=== PATIENT | female | born 1985 | race Caucasian/White ===

== ENCOUNTER 2018-09-01 18:52 | Observation (INO) ==
[2018-09-01] MEDS ORDERED: TORADOL 30 MG VIAL IVP ONE (20:21)
[2018-09-01 20:42] VITALS: BMI 21.4
[2018-09-01 21:01] LABS: BASOPHILS # (AUTO) 0.1 X10^3/uL (0.0-0.1); BASOPHILS % (AUTO) 0.7 % (0.2-1.0); EOSINOPHILS # (AUTO) 0.1 x10^3/uL (0.0-0.2); EOSINOPHILS % (AUTO) 1.7 % (0.9-2.9); HEMATOCRIT 40.8 % (36.0-47.0); HEMOGLOBIN 14.2 g/dL (12.0-16.0); LYMPHOCYTES # (AUTO) 2.4 X10^3/uL (1.3-2.9); LYMPHOCYTES % (AUTO) 31.9 % (21.0-51.0); MEAN CORPUSCULAR HEMOGLOBIN 31.5 pg (27.0-34.0); MEAN CORPUSCULAR HGB CONC 34.7 g/dL (33.0-35.0); MEAN CORPUSCULAR VOLUME 90.6 fL (80.0-100.0); MEAN PLATELET VOLUME 9.3 fL (7.4-11.0); MONOCYTES # (AUTO) 0.5 x10^3/uL (0.3-0.8); MONOCYTES % (AUTO) 6.8 % (0.0-13.0); NEUTROPHILS # (AUTO) 4.4 x10^3/uL (2.2-4.8); NEUTROPHILS % (AUTO) 58.9 % (42.0-75.0); PLATELET COUNT 207 X10^3/uL (150.0-450.0); RED CELL DISTRIBUTION WIDTH 13.7 % (11.6-16.5); WHITE BLOOD COUNT 7.5 X10^3/uL (3.6-10.0)
[2018-09-01 21:12] LABS: ALANINE AMINOTRANSFERASE 13 Units/L (12-78); ALBUMIN 3.6 g/dL (3.4-5.0); ALKALINE PHOSPHATASE 74 Units/L (46-116); ASPARTATE AMINO TRANSFERASE 14 Units/L (15-37); BLOOD UREA NITROGEN 19 mg/dL (7-18); CALCIUM 8.6 mg/dL (8.5-10.1); CARBON DIOXIDE 25.7 mmol/L (21-32); CHLORIDE 105 mmol/L (98-107); CREATININE 0.81 mg/dL (0.55-1.02); SODIUM 138 mmol/L (136-145); TOTAL PROTEIN 7.3 g/dL (6.4-8.2); eGFR NON BLACK RACES > 60 (>60)
[2018-09-01] MEDS: NS 1000 ML 1,000 ML IV SCH (21:13)
[2018-09-01] MEDS: ROCEPHIN VIAL 1 GRAM IVP SCH (21:30)
[2018-09-01 21:37] LABS: BILIRUBIN,URINE NEGATIVE (NEGATIVE); BLOOD/HEMOGLOBIN,URINE 5+ (NEGATIVE); GLUCOSE, URINE NEGATIVE (NEGATIVE); KETONES,URINE NEGATIVE (NEGATIVE); LEUKOCYTE ESTERASE ,URINE 1+ (NEGATIVE); NITRITES,URINE NEGATIVE (NEGATIVE); PROTEIN,URINE 1+ (NEGATIVE); UROBILINOGEN,URINE 1+ (NORMAL)
[2018-09-01 22:03] LABS: APPEARANCE,URINE SLIGHTLY HAZY (CLEAR); COLOR,URINE YELLOW (YELLOW)
[2018-09-01 22:04] LABS: BACTERIA,URINE TRACE /HPF (NEGATIVE); CALCIUM OXALATE CRYSTALS,UR MODERATE /HPF (NEGATIVE); MUCUS,URINE FEW /HPF (NEGATIVE); SQUAMOUS EPITHELIAL CELL,UR MANY /HPF (NEGATIVE)
[2018-09-01] MEDS: PERCOCET TAB 5/325 MG PO PRN (23:52)
[2018-09-02] MEDS: TORADOL 15 MG VIAL IVP PRN ×4 (03:15→23:54)
[2018-09-02 06:18] LABS: BLOOD UREA NITROGEN 18 mg/dL (7-18); CALCIUM 7.8 mg/dL (8.5-10.1); CARBON DIOXIDE 21.9 mmol/L (21-32); CHLORIDE 109 mmol/L (98-107); CREATININE 0.61 mg/dL (0.55-1.02); SODIUM 138 mmol/L (136-145); eGFR NON BLACK RACES > 60 (>60)
--- NOTE | 2018-09-02 08:16 | DR.H&P ---
H&P - History & Physical for Day of: H&P Date: 09/01/18 - Chief Complaint Chief Complaint: intractable abdominal pain - History of Present Illness History of Present Illness: Patient is a 33 year old female that is being admitted to [facility] secondary to intractable abdominal pain. Patient started having left lower flank/back pain that radiated around to umbilical region that started on Saturday night. Patient reports no relief with OTC medications. Patient received x2 bags of IV fluids with IM Toradol and Demerol in office. Patient was noted to have a decreased urine output after the second bag of fluid without any relief in pain. Patient denies N/V/D or fever. Patient will be admitted for further treatment and evaluation. - Past Medical History Past Medical History: Headaches, Kidney Stones - Past Surgical History Surgical History: , Cholecystectomy, Other - Social History Does patient currently use any type of tobacco product: No Have you used tobacco products in the last 12 months: No Type of Tobacco Use: None Alcohol Use: None Drug Use: None - Medications Home Medications: codeine Adverse Reaction (Verified 09/01/18 20:44) CONTINUE taking the following medications sumatriptan succinate 100 mg PO PRN PRN 09/01/18 [History] - Review of Systems Constitutional: See HPI Eyes: See HPI ENT: See HPI Respiratory: See HPI Cardiovascular: See HPI Gastrointestinal: See HPI, Abdominal Pain Genitourinary: See HPI Musculoskeletal: See HPI Skin: See HPI Neurological: See HPI - Physical Exam Vital Signs: Temperature 97.9 F Pulse Rate [Right Brachial] 84 Respiratory Rate 20 Blood Pressure [Right Arm] 95/61 O2 Sat by Pulse Oximetry 98 Oriented: Normal Eyes: Normal Ear: Normal Nose: Normal Throat: Normal Respiratory: Clear Throughout Cardiovascular: Normal : Other Auscultation: Bowel Sounds: Normal Palpation: Normal Tenderness: Diffuse, Severe, Guarding Skin: Normal Musculoskeletal: Normal Psychiatric: Normal Mood Description: Anxious Affect: Anxious Speech Pattern: Clear - Assessment/Plan (1) Abdominal pain Status: Acute Plan: CT Abdomen and Pelvis. IV pain medication. IV Hydration. Monitor I&O's - Allergies Allergies/Adverse Reactions: Allergies Allergy/AdvReac Type Severity Reaction Status Date / Time codeine AdvReac Verified 09/01/18 20:44
--- NOTE | 2018-09-02 08:33 | CT ---
HISTORY: Flank pain Study: CT abdomen pelvis without contrast Comparison: None Technique: Axial noncontrast images with coronal and sagittal reformats. Dose reduction procedures were used with mA/kv adjusted for body size. Findings: The lung bases are clear. The liver, spleen, adrenal glands, and pancreas are within normal limits to the limitations of an unenhanced examination. The kidneys are unobstructed. There is a 1 mm nonobstructing right midpole renal calculus. No ureteral calculi are identified. The abdominal aorta is within normal limits for age. No intraperitoneal or retroperitoneal lymphadenopathy of significance is identified. The appendix is not identified with absolute certainty. There are no secondary signs of appendicitis present. There are no findings suggestive of diverticulitis or colitis. There are no findings suggestive of enteritis or small bowel obstruction. Examination of the pelvis demonstrated no evidence for pelvic masses, pelvic fluid, or pelvic lymphadenopathy. There is a 4.5 by 3.9 cm right adnexal lesion possibly a cyst, however, evaluation with transvaginal pelvic sonography is recommended. No definite bladder abnormality is identified. No lytic or blastic skeletal lesions are identified. IMPRESSION: No evidence for obstructing renal or ureteral calculi 1 mm nonobstructing right midpole renal calculus 4.5 x 3.5 cm right adnexal lesion possibly a cyst. Evaluation with transvaginal pelvic sonography is recommended Reported By:
[2018-09-02] MEDS ORDERED: ZOFRAN INJ 4 MG VIAL IVP PRN (08:44)
[2018-09-02] MEDS: NS 1000 ML 1,000 ML IV SCH ×2 (09:21→14:33)
--- NOTE | 2018-09-02 12:57 | US ---
History: Right adnexal large cyst by today's CT scan Study: Transvaginal ultrasound Findings: There is a right ovarian septated cystic mass measuring 4.5 x 3.43 x 4.46 cm. Overall the right ovary measures 5.58 x 4.42 x 5.66 cm. The left ovary measures 3.2 x 1.45 x 1.93 cm without mass. The uterus measures 8.28 x 5.32 x 5.66 cm without mass. The endometrium measures 5.6 mm thickness. There is a pocket of free fluid in the cul-de-sac. 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
[2018-09-02] MEDS: PEPCID 20 MG IV PREMIX* 20 MG/50 ML BAG IV SCH ×2 (13:01→20:57)
[2018-09-02] MEDS: PERCOCET TAB 5/325 MG PO PRN ×2 (14:32→20:58)
--- NOTE | 2018-09-02 18:00 | PCM.PROG ---
Progress Note - Progress Note for Day of Date of Exam: 09/02/18 - Subjective Subjective: 33 WF ADMITTED ON 09/01 WITH INTRACTABLE LEFT FLANK PAIN, HEMATURIA AND UTI. PT CO NAUSEA AND LOOSE STOOL. PT HAD CT ABDPELVIS ON ADMISSION WITH 1 mm nonobstructing right midpole renal calculus. 4.5 x 3.5 cm right adnexal lesion possibly a cyst. Evaluation with transvaginal pelvic sonography is recommended. PT STATES LAST LMP ~08/11 WITH HX OF TUBAL LIGATION. TRANSVAGINAL US AND SERUM HCG ORDERED FOR TODAY, WILL CONTINUE WITH HYDRATION, PAIN CONTROL, IV ROCEPHINFOR ECOLI UTI. - Past Medical Family Social History Past Med/Fam/Surg Hx: No changes since H&P Allergies: Allergies codeine Adverse Reaction (Verified 09/01/18 20:44) - Review of Systems ROS: No change since H&P - Vital Signs and I&O's Vital Signs: Temperature 98.2 F Pulse Rate [Right Brachial] 73 Respiratory Rate 18 Blood Pressure [Right Arm] 102/55 O2 Sat by Pulse Oximetry 98 Intake and Output: Intake & Output 08/31/18 09/01/18 09/02/18 09/03/18 11:59 11:59 11:59 11:59 Intake Total 1650 / 1650 360 / 360 Balance 1650 / 1650 360 / 360 - Physical Exam Oriented: Normal Eyes: Normal Ear: Normal Nose: Normal Throat: Normal Respiratory: Normal Cardiovascular: Normal : Other Auscultation: Bowel Sounds: Normal Tenderness: LUQ, LLQ, Moderate Skin: Normal Musculoskeletal: Normal Psychiatric: Normal Mood Description: Anxious Affect: Anxious Speech Pattern: Clear - Laboratory and Diagnostics Result Diagrams: 09/01/18 20:37 09/02/18 05:35 Labs: 09/01/18 21:25 Urine,Clean Catch Urine Culture - Preliminary Laboratory WBC 7.5 X10^3/uL (3.6-10.0) 09/01/18 20:37 RBC 4.50 X10^6/uL (3.5-5.4) 09/01/18 20:37 Hgb 14.2 g/dL (12.0-16.0) 09/01/18 20:37 Hct 40.8 % (36.0-47.0) 09/01/18 20:37 MCV 90.6 fL (80.0-100.0) 09/01/18 20:37 MCH 31.5 pg (27.0-34.0) 09/01/18 20:37 MCHC 34.7 g/dL (33.0-35.0) 09/01/18 20:37 RDW 13.7 % (11.6-16.5) 09/01/18 20:37 Plt Count 207 X10^3/uL (150.0-450.0) 09/01/18 20:37 MPV 9.3 fL (7.4-11.0) 09/01/18 20:37 Neut % (Auto) 58.9 % (42.0-75.0) 09/01/18 20:37 Lymph % (Auto) 31.9 % (21.0-51.0) 09/01/18 20:37 Stokes % (Auto) 6.8 % (0.0-13.0) 09/01/18 20:37 Eos % (Auto) 1.7 % (0.9-2.9) 09/01/18 20:37 Baso % (Auto) 0.7 % (0.2-1.0) 09/01/18 20:37 Neut # (Auto) 4.4 x10^3/uL (2.2-4.8) 09/01/18 20:37 Lymph # (Auto) 2.4 X10^3/uL (1.3-2.9) 09/01/18 20:37 Stokes # (Auto) 0.5 x10^3/uL (0.3-0.8) 09/01/18 20:37 Eos # (Auto) 0.1 x10^3/uL (0.0-0.2) 09/01/18 20:37 Baso # (Auto) 0.1 X10^3/uL (0.0-0.1) 09/01/18 20:37 Absolute Nucleated RBC 0.0 /100WBC 09/01/18 20:37 Sodium 138 mmol/L (136-145) 09/02/18 05:35 Corrected Sodium TNP 09/02/18 05:35 Potassium 3.7 mmol/L (3.5-5.1) 09/02/18 05:35 Chloride 109 mmol/L (98-107) H 09/02/18 05:35 Carbon Dioxide 21.9 mmol/L (21-32) 09/02/18 05:35 BUN 18 mg/dL (7-18) 09/02/18 05:35 Creatinine 0.61 mg/dL (0.55-1.02) 09/02/18 05:35 Est GFR (MDRD) Af Amer > 60 (>60) 09/02/18 05:35 Est GFR (MDRD) Non-Af > 60 (>60) 09/02/18 05:35 Glucose 92 mg/dL (65-99) 09/02/18 05:35 Calcium 7.8 mg/dL (8.5-10.1) L 09/02/18 05:35 Corrected Calcium TNP 09/01/18 20:37 Total Bilirubin 0.70 mg/dL (0.2-1.0) 09/01/18 20:37 AST 14 Units/L (15-37) L 09/01/18 20:37 ALT 13 Units/L (12-78) 09/01/18 20:37 Alkaline Phosphatase 74 Units/L (46-116) 09/01/18 20:37 Total Protein 7.3 g/dL (6.4-8.2) 09/01/18 20:37 Albumin 3.6 g/dL (3.4-5.0) 09/01/18 20:37 Globulin 3.7 g/dL (2.5-4.5) 09/01/18 20:37 Albumin/Globulin Ratio 1.0 Ratio (1.1-2.1) L 09/01/18 20:37 Specimen Type Clean catch urine 09/01/18 21:25 Urine Color Yellow (YELLOW) 09/01/18 21:25 Urine Appearance Slightly hazy (CLEAR) 09/01/18 21:25 Urine pH 5.0 (5.0 - 8.0) 09/01/18 21:25 Ur Specific [place] 1.030 (1.000-1.030) 09/01/18 21:25 Urine Protein 1+ (NEGATIVE) 09/01/18 21:25 Urine Glucose (UA) Negative (NEGATIVE) 09/01/18 21:25 Urine Ketones Negative (NEGATIVE) 09/01/18 21:25 Urine Occult Blood 5+ (NEGATIVE) 09/01/18 21:25 Urine Nitrite Negative (NEGATIVE) 09/01/18 21:25 Urine Bilirubin Negative (NEGATIVE) 09/01/18 21:25 Urine Urobilinogen 1+ (NORMAL) 09/01/18 21:25 Ur Leukocyte Esterase 1+ (NEGATIVE) 09/01/18 21:25 Urine RBC 10-20 /HPF (NONE SEEN) 09/01/18 21:25 Urine WBC 3-5 /HPF (NONE SEEN) 09/01/18 21:25 Ur Squamous Epith Cells Many /HPF (NEGATIVE) 09/01/18 21:25 Calcium Oxalate Crystal Moderate /HPF (NEGATIVE) 09/01/18 21:25 Urine Bacteria Trace /HPF (NEGATIVE) 09/01/18 21:25 Urine Mucus Few /HPF (NEGATIVE) 09/01/18 21:25 Ur Culture Indicated? Yes/culture set up 09/01/18 21:25 - Plan (1) UTI (urinary tract infection) Status: Acute Plan: IV ATBX. IV HYDRATION. PAIN AND NAUSEA CONTROL. TRANSVAGINAL US, SERUM HCG TODAY. STOOL STUDIES (2) Pelvic pain Status: Acute (3) Hematuria Status: Acute (4) Abdominal pain Status: Acute
[2018-09-02 18:08] LABS: SERUM PREGNANCY TEST, QUAL NEGATIVE <10 mIU/mL
[2018-09-02] MEDS: ROCEPHIN VIAL 1 GRAM IVP SCH (20:57)
[2018-09-03] MEDS: NS 1000 ML 1,000 ML IV SCH ×2 (01:05→05:25)
[2018-09-03] MEDS: TORADOL 15 MG VIAL IVP PRN (08:43)
[2018-09-03] MEDS: PEPCID 20 MG IV PREMIX* 20 MG/50 ML BAG IV SCH (08:45)
[2018-09-03] MEDS: PERCOCET TAB 5/325 MG PO PRN (13:12)
--- NOTE | 2018-09-03 13:22 | RAD ---
History: Low back pain Study: Five views of the lumbar spine Comparison: None Findings: There is normal alignment without fracture or compression. There is mild L4-5 disc space narrowing and moderate L5-S1 disc space narrowing. There are prominent anterior osteophytes at L5-S1. The sacroiliac joints are unremarkable. The facets appear unremarkable. Impression: Lower lumbar L4-5 and L5-S1 degenerative disc disease Reported By:
--- NOTE | 2018-09-03 13:23 | RAD ---
History: Back pain Study: Three views of the thoracic spine Comparison: None Findings: There is mild dextroscoliosis of the upper thoracic spine. There is no fracture or compression or lytic or blastic lesion. No significant degenerative osteophytes are demonstrated. Impression: Mild dextroscoliosis, otherwise unremarkable Reported By:
[2018-09-03 18:32] VITALS: BP 89/54
== END 2018-09-03 15:55 | disposition home or self-care (01) ==
LOC: EDBD → MED/SURG
PROVIDERS: ADMIT Internal Medicine; ATTEND Internal Medicine
DX: R31.9 Hematuria, unspecified; N20.0 Calculus of kidney; N39.0 Urinary tract infection, site not specified; M51.36 Other intervertebral disc degeneration, lumbar region; R10.32 Left lower quadrant pain; N83.291 Other ovarian cyst, right side
CPT/HCPCS: 36415; 72072; 72110; 74176; 76830; 80048; 80053; 81001; 84703; 85025; 87040; 87086; 87088; 87186; 96367; 96374; A4222; S0028; G0378; J0696; J1885; J2405; J7030